=== PATIENT | male | born 2000 | race Caucasian/White ===

== ENCOUNTER 2021-04-09 20:43 | Emergency (ER) | payer OTHER, SELFPAY ==
[2021-04-09 20:46] VITALS: BP 125/55; PULSE 78; RESP 12; TEMP 36.6; O2SAT 98; BMI 24.1
--- NOTE | 2021-04-09 20:54 | DI.RAD.S_ITS ---
PROCEDURE: XR FINGER RT MIN 2V INDICATIONS: fell two weeks ago ongoing right ring finger pain TECHNIQUE: AP hand, 2 views of the right 4th finger(s) acquired. COMPARISON: None. FINDINGS: Bones: No fractures or dislocations. No suspicious bony lesions. Soft tissues: No suspicious soft tissue calcifications. IMPRESSION: No fracture. No osseous lesion. If symptoms and/or clinical suspicion for pathology persists, further assessment with repeat radiographs (7-10 days) or advanced imaging (e.g. CT, MRI or bone scan) should be considered. Dictated by: Letiica Jackson MD, PhD on 04/09/2021 at 21:05 Approved by: Leticia Jackson MD, PhD on 04/09/2021 at 21:07
--- NOTE | 2021-04-10 06:06 | ED_ITS ---
HPI - Extremity Injury (Upper) General Chief Complaint: Extremity Injury, Upper Stated Complaint: RIGHT RING FINGER Time Seen by Provider: 04/09/21 23:24 Source: patient Mode of arrival: Ambulatory History of Present Illness HPI narrative: Otherwise healthy 21-year-old young man who fell 2 weeks ago and jammed his right middle finger with pain to the 4th metacarpal joint. There is a bit of swelling to the area and over the dorsum of the hand. He does have full range of motion with no ecchymosis. He has not tried any interventions including splinting, elevation, ice, ibuprofen and is concerned that it is getting worse Related Data Previous Rx's Medication Instructions Recorded fluticasone propionate 1 spray INTRANASAL BID PRN #16 gm 12/14/17 Allergies Allergy/AdvReac Type Severity Reaction Status Date / Time No Known Allergies Allergy Uncoded 01/26/19 08:40 Review of Systems Review of Systems Narrative: Remainder of complete review of systems is otherwise unremarkable except for that included in the HPI. Patient History Social History Smoking Status: Never smoker alcohol intake: current substance use type: does not use Smoking Status: Never smoker alcohol intake frequency: a few times a month Substance Use Type: does not use Exam Narrative Exam Narrative: General: Alert appropriate in no acute distress Respiratory: Able to speak in full sentences, no obvious respiratory distress Skin: No obvious rashes, warm and dry Neurologic: Grossly intact no obvious asymmetries or abnormalities Psych: appropriate insight and affect, cooperative Extremity: Right hand with some swelling over the dorsum of the hand knuckles themselves are not particularly swollen or with any evidence of active synovitis he does have full range of motion of full relations specialist strength with the right hand. Initial Vital Signs Initial Vital Signs: Vital Signs Temperature 97.9 F 04/09/21 20:46 Pulse Rate 78 04/09/21 20:46 Respiratory Rate 12 04/09/21 20:46 Blood Pressure 125/55 L 04/09/21 20:46 Pulse Oximetry 98 04/09/21 20:46 MDM - Extremity Injury (Upper) Medical Records Attestation: I reviewed the patient's medical records. Imaging Data X-ray fingers: Radiologist's Impression: FINDINGS: Bones: No fractures or dislocations. No suspicious bony lesions. Soft tissues: No suspicious soft tissue calcifications. IMPRESSION: No fracture. No osseous lesion. If symptoms and/or clinical suspicion for pathology persists, further assessment with repeat radiographs (7-10 days) or advanced imaging (e.g. CT, MRI or bone scan) should be considered. Dictated by: Leticia Jackson MD, PhD on 04/09/2021 at 21:05 [facility] Narrative Medical decision making narrative: 21-year-old young man with a 2-week-old history of jamming his ring finger with continued tenderness and swelling. No bony injury. He has not tried any techniques to try to alleviate pain or symptoms. We talked about immobilization and is given a wrist splint to help decrease overall finger mobility and provide some support to the palmar surface of the hand. Reviewed the use of ice, elevation and ibuprofen. Reassurance is given he is safe for home discharge Discharge Plan Departure Patient Disposition: Home Clinical Impression: Sprain of finger of right hand Qualifiers: Encounter type: initial encounter Finger: middle finger Sprain of finger site: metacarpophalangeal joint Qualified Code(s): S63.652A - Sprain of metacarpophalangeal joint of right middle finger, initial encounter Instructions: DI for Hand Injury Activity Restrictions/Additional Instructions: Thank you for coming in today Your x-rays were reassuring. You did not break any bones Using 400 mg of ibuprofen (2 [id number] pills) and 1 Tylenol every 6 hours can be very helpful in controlling pain. Using the splint to minimize mobility of your fingers in your hand may help with the pain and swelling. If you continue to have problems in another 2 or 3 weeks, please follow-up with Dr. Enrique Prescriptions: No Action fluticasone propionate 16 GM spray,suspension 1 spray Intranasal BID PRNQty: 16 RF: 0 Referrals: Eben Enrique MD [Primary Care Provider] -
== END 2021-04-10 01:02 | disposition home or self-care (01) ==
PROVIDERS: Emergency Provider Emergency Medicine; PCP Pediatrics
DX: S63.652A Sprain of metacarpophalangeal joint of right middle finger, initial encounter (principal); W23.0XXA Caught, crushed, jammed, or pinched between moving objects, initial encounter
CPT/HCPCS: 73140; 99283

== ENCOUNTER 2021-07-08 13:08 | Emergency (ER) | payer OTHER, SELFPAY ==
[2021-07-08 13:16] VITALS: BP 118/69; PULSE 62; RESP 16; TEMP 37; O2SAT 99; BMI 24.4
--- NOTE | 2021-07-08 13:27 | ED.LOWEXIN ---
HPI - Extremity Injury (Lower) <Umair Chang PA-C - Last Filed: 07/08/21 14:09> General Chief Complaint: Extremity Injury, Lower Stated Complaint: Hole in Right Leg, Fall About 3' Time Seen by Provider: 07/08/21 13:16 Source: patient Mode of arrival: Ambulatory Limitations: no limitations History of Present Illness HPI Narrative: Abdon presents today with chief complaint of laceration to his right lower leg after he fell through the floor of a tree house last night. He reports that this happened about 12 hours ago. His marcio washed it out and put a bandage on it. He reports that he still has pain to that area but states that the bleeding has stopped. He is able to walk on it without significant difficulty. He is otherwise healthy and has no known significant problems. His last tetanus was in 2011. Related Data Previous Rx's Medication Instructions Recorded fluticasone propionate 50 1 spray INTRANASAL BID PRN #16 gm 12/14/17 mcg/actuation nasal spray,suspension Allergies Allergy/AdvReac Type Severity Reaction Status Date / Time No Known Allergies Allergy Uncoded 01/26/19 08:40 Review of Systems <Umair Chang PA-C - Last Filed: 07/08/21 14:09> Review of Systems Narrative: As per HPI Patient History <Umair Chang PA-C - Last Filed: 07/08/21 14:09> Social History Smoking Status: Current some day smoker alcohol intake: current substance use type: does not use Smoking Status: Current some day smoker alcohol intake frequency: a few times a month Substance Use Type: does not use Exam <Umair Chang PA-C - Last Filed: 07/08/21 14:09> Narrative Exam Narrative: Exam Narrative: Const General: cooperative, healthy appearing, comfortable, no acute distress, well developed and well groomed Nutritional Appearance: average body habitus Orientation: alert and oriented x3 HENMT Head: normal to inspection and atraumatic Ears: hearing grossly normal bilaterally Nose: external nose normal and nares normal Face and sinus: normal facial exam Neck Neck: normal visual inspection and supple Resp Effort & Inspection: normal respiratory effort, able to speak in complete sentences, no audible wheezes, not labored, no nasal flaring and no respiratory distress Neuro General: alert, oriented x3, gait normal, tone normal and moves all extremities Cognition: normal cognition Speech: speech normal Gait: normal gait Extremities Lower extremities exposed. 6 cm gaping laceration noted to medial right lower leg just inferior to the right knee. Not currently bleeding. Mild abrasion surrounding the laceration. Full range of motion of the knee. No joint effusion. No significant bony tenderness. No foreign bodies visualized. Psych Appearance: grossly normal and well kempt Mental Status: mental status grossly normal Speech and Movement: speech and movement normal Mood: congruent mood Affect: normal affect Initial Vital Signs Initial Vital Signs: Vital Signs Temperature 98.6 F 07/08/21 13:16 Pulse Rate 62 07/08/21 13:16 Respiratory Rate 16 07/08/21 13:16 Blood Pressure 118/69 07/08/21 13:16 Pulse Oximetry 99 07/08/21 13:16 <Jose Duffy MD - Last Filed: 07/08/21 16:09> Initial Vital Signs Initial Vital Signs: Vital Signs Temperature 98.6 F 07/08/21 13:16 Pulse Rate 62 07/08/21 13:16 Respiratory Rate 16 07/08/21 13:16 Blood Pressure 118/69 07/08/21 13:16 Pulse Oximetry 99 07/08/21 13:16 Procedures <Umair Chang PA-C - Last Filed: 07/08/21 14:09> Laceration Repair Laceration 1: Site: lower extremity Side (If applicable): right Description: linear and contaminated Depth: simple, single layer Local Anesthetic: lidocaine 1% and with epi Amount of anesthesia used (mL): 8 Pre-repair: wound explored, irrigated extensively and deep structures intact Skin layer closed with: nylon Size (cm): 3-0 Number of sutures: 6 Technique: simple, interrupted Course <Umair Chang PA-C - Last Filed: 07/08/21 14:09> Orders Ordered: Discontinued Medications Bacitracin (Bacitracin Oint 0.9 Gm Pckt) 1 applic TOP NOW ONE Stop: 07/08/21 14:03 Last Admin: 07/08/21 14:09 Dose: 1 applic Documented by: BTONER Diphtheria/Tetanus/Acell Pertussis (Tet,Diph,Pertuss(Acell),Vac/Pf 0.5 Ml Syringe) 0.5 ml IM .ONCE ONE Stop: 07/08/21 14:03 Last Admin: 07/08/21 14:10 Dose: 0.5 ml Documented by: BTONER Vital Signs Vital signs: Vital Signs - 8 hr 07/08/21 13:16 Temperature 98.6 F Pulse Rate 62 Respiratory Rate 16 Blood Pressure 118/69 Pulse Oximetry 99 <Jose Duffy MD - Last Filed: 07/08/21 16:09> Orders Ordered: Discontinued Medications Bacitracin (Bacitracin Oint 0.9 Gm Pckt) 1 applic TOP NOW ONE Stop: 07/08/21 14:03 Last Admin: 07/08/21 14:09 Dose: 1 applic Documented by: BTONER Diphtheria/Tetanus/Acell Pertussis (Tet,Diph,Pertuss(Acell),Vac/Pf 0.5 Ml Syringe) 0.5 ml IM .ONCE ONE Stop: 07/08/21 14:03 Last Admin: 07/08/21 14:10 Dose: 0.5 ml Documented by: BTONER Vital Signs Vital signs: Vital Signs - 8 hr 07/08/21 13:16 Temperature 98.6 F Pulse Rate 62 Respiratory Rate 16 Blood Pressure 118/69 Pulse Oximetry 99 MDM - Extremity Injury (Lower) <Umair Chang PA-C - Last Filed: 07/08/21 14:09> MDM Narrative Medical decision making narrative: Differential diagnosis includes traumatic arthropathy, tendon injury, vascular injury. Patient's laceration is not currently bleeding and he is neurologically intact distally. The laceration is distal enough to the joint space that I do not think there was any communication. I considered doing a fluid challenge to the joint but think that this is unnecessary at this time. He does not have any significant underlying bony tenderness or difficulty walking. Recommend treating as a simple laceration at this time. Discharge Plan Departure Patient Disposition: Home Clinical Impression: Laceration of lower extremity Qualifiers: Encounter type: initial encounter Laterality: left Qualified Code(s): S81.812A - Laceration without foreign body, left lower leg, initial encounter Instructions: DI for Laceration Repair Activity Restrictions/Additional Instructions: It was very nice to meet you this afternoon. Please apply topical antibiotics for the next 3 days to help prevent any significant infection. The stitches will need to be taken out in 7-10 days. If you experience increased redness, swelling, pain, fever do not hesitate to return for re-evaluation. Thank you Umair Chang PA-C Prescriptions: No Action fluticasone propionate 16 GM spray,suspension 1 spray Intranasal BID PRNQty: 16 RF: 0 Referrals: Eben Enrique MD [Primary Care Provider] -
[2021-07-08] MEDS: BACITRACIN OINT 0.9 GM PCKT 1 APPLIC TOP (14:09)
[2021-07-08] MEDS: TET,DIPH,PERTUSS(ACELL),VAC/PF 0.5 ML SYRINGE IM (14:10)
== END 2021-07-08 14:39 | disposition home or self-care (01) ==
PROVIDERS: Emergency Provider Physician Assistant; PCP Pediatrics
DX: S81.812A Laceration without foreign body, left lower leg, initial encounter (principal); W19.XXXA Unspecified fall, initial encounter; Z23 Encounter for immunization
CPT/HCPCS: 90471; 99283; 90715